=== PATIENT | male | born 1965 | race Caucasian/White ===

== ENCOUNTER 2023-06-27 07:47 | Day surgery (SDC) | payer BC ==
[2023-06-24 11:19] VITALS: BMI 30.7
[2023-06-27 13:59] VITALS: TEMP 98
[2023-06-27 14:02] VITALS: BP 122/76; PULSE 85; RESP 16
== END 2023-06-27 10:00 | disposition home or self-care (01) ==
LOC: FASU-ENDO 07:47
PROVIDERS: ATTEND Internal Medicine Gastroenterology
PROC: 0DJD8ZZ Inspection of Lower Intestinal Tract, Via Natural or Artificial Opening Endoscopic (ICD-10-PCS; principal; 2023-06-27 08:48)
DX: Z12.11 Encounter for screening for malignant neoplasm of colon (principal); K57.30 Diverticulosis of large intestine without perforation or abscess without bleeding; Z86.010 Personal history of colon polyps; Z80.0 Family history of malignant neoplasm of digestive organs
CPT/HCPCS: 82962